=== PATIENT | male | born 1990 | race Hispanic/Latino ===

== ENCOUNTER 2018-08-26 07:59 | Emergency (ER) | payer BC ==
[2018-08-26 08:03] VITALS: RESP 18
[2018-08-26] MEDS ORDERED: Naproxen 500 MG TAB PO STA (08:22)
--- NOTE | 2018-08-26 08:27 | ED PDOC ---
Lower Extremity Pain/Injury Time Seen by Provider: 08/26/18 08:03 Chief Complaint (Nursing): Lower Extremity Problem/Injury Chief Complaint (Provider): right leg bruise History Per: Patient History/Exam Limitations: no limitations Onset/Duration Of Symptoms: Days (x1 week) Current Symptoms Are (Timing): Still Present Additional Complaint(s): Calos Gant is a 28 year old male, with no significant past medical history, who presents to the emergency department complaining of right leg pain and bruise onset x1 week. Patient reports he was at a basketball game x1 week ago after which he noticed a bruise. He iced his leg at the time but states pain has only gotten progressively worst. Patient is not sure how he injured his leg. He denies any weakness, numbness, tingling or other possible injuries. No further medical complaints. PMD: None provided. Past Medical History Reviewed: Historical Data, Nursing Documentation, Vital Signs Vital Signs: Last Vital Signs Temp 97.3 F L 08/26/18 08:01 Pulse 63 08/26/18 08:01 Resp 18 08/26/18 08:01 BP 129/69 08/26/18 08:01 Pulse Ox 99 08/26/18 08:01 - Medical History PMH: No Chronic Diseases Denies: Chronic Kidney Disease - Surgical History Surgical History: No Surg Hx - Family History Family History: States: Unknown Family Hx - Social History Current smoker - smoking cessation education provided: No Alcohol: Social Drugs: Denies - Home Medications Home Medications: Ambulatory Orders Medication Instructions Recorded Naproxen [Naprosyn] 500 mg PO BID PRN #15 tablet 08/26/18 - Allergies Allergies/Adverse Reactions: Allergies Allergy/AdvReac Type Severity Reaction Status Date / Time No Known Allergies Allergy Verified 08/26/18 08:18 Review of Systems ROS Statement: Except As Marked, All Systems Reviewed And Found Negative Musculoskeletal: Positive for: Leg Pain (right bruise) Neurological: Negative for: Weakness, Numbness (tingling) Physical Exam - Reviewed Nursing Documentation Reviewed: Yes Vital Signs Reviewed: Yes - Physical Exam Appears: Positive for: No Acute Distress Head Exam: Positive for: ATRAUMATIC, NORMAL INSPECTION, NORMOCEPHALIC Skin: Positive for: Normal Color, Warm, Dry Eye Exam: Positive for: Normal appearance, EOMI, PERRL Neck: Positive for: Normal, Painless ROM Pulses-Dorsalis Pedis (L): 2+ Extremity: Positive for: Normal ROM (Full ROM of knee and ankle ), Tenderness (Ecchymosis to the anterior medial right lower leg with a 3cm area of edema and tenderness), Swelling, Other (Normal color and not tense. Sensation intact.). Negative for: Deformity Neurologic/Psych: Positive for: Alert, Oriented. Negative for: Motor/Sensory Deficits - ECG O2 Sat by Pulse Oximetry: 99 (RA) Pulse Ox Interpretation: Normal Medical Decision Making Medical Decision Making: Time: 08:03 Initial Impression: Right leg pain Initial Plan: --Naproxen 500 mg PO --Tibia Fibula Rt fall protocol [RAD] --Duplex Lower Extrm Vein Right [US] --Reevaluation 10:18 Lower Extremity US FINDINGS: COMMON FEMORAL VEIN: Unremarkable. SUPERFICIAL FEMORAL VEIN: Unremarkable. POPLITEAL VEIN: Unremarkable. POSTERIOR TIBIAL VEIN: Unremarkable. OTHER FINDINGS: None. IMPRESSION: No sonographic evidence of deep venous thrombosis at the right lower extremity. 10:40 -On reevaluation, leg re-examined and calf remains soft. DP pulses 2+ and sensation intact. 10:45 Tibia/Fibula X-Ray FINDINGS: BONES: Bone alignment and mineralization are normal. There is no acute displaced fracture or bone destruction. JOINT SPACES: Unremarkable. OTHER FINDINGS: None. IMPRESSION: No acute findings. 10:51 Upon provider evaluation patient is medically stable, and requires no further treatment in the ED at this time. Patient will be discharged home. Counseling was provided and all questions were answered regarding diagnosis and need for follow up with ortho. There is agreement to discharge plan. Return if symptoms persist or worsen. Scribe Attestation: Documented by Tc Villagran, acting as a scribe for Kelsey Batista MD Provider Scribe Attestation: All medical record entries made by the Scribe were at my direction and personally dictated by me. I have reviewed the chart and agree that the record accurately reflects my personal performance of the history, physical exam, medical decision making, and the department course for this patient. I have also personally directed, reviewed, and agree with the discharge instructions and disposition. Disposition - Clinical Impression Clinical Impression: Spontaneous ecchymoses - Disposition Referrals: Arthur Rosas MD [Medical Doctor] - [facility] [Outside] Disposition: Routine/Home Disposition Time: 10:51 Condition: STABLE Prescriptions: Naproxen [Naprosyn] 500 mg PO BID PRN #15 tablet PRN Reason: Pain, Moderate (4-7) Instructions: Taking Care of Bruises, Contusion (DC) Forms: [facility] ([facility])
[2018-08-26] MEDS ORDERED: Naproxen 500 MG TAB PO ONE (08:29)
--- NOTE | 2018-08-26 10:22 | US ---
Date of service: 08/26/2018 PROCEDURE: Right lower extremity venous duplex Doppler. HISTORY: LE edema COMPARISON: None available. TECHNIQUE: Common femoral, superficial femoral, popliteal and posterior tibial veins were evaluated. Flow was assessed with color Doppler, compressibility, assessment of phasic flow and augmentation response. FINDINGS: COMMON FEMORAL VEIN: Unremarkable. SUPERFICIAL FEMORAL VEIN: Unremarkable. POPLITEAL VEIN: Unremarkable. POSTERIOR TIBIAL VEIN: Unremarkable. OTHER FINDINGS: None. IMPRESSION: No sonographic evidence of deep venous thrombosis at the right lower extremity.
--- NOTE | 2018-08-26 10:49 | RAD ---
Date of service: 08/26/2018 PROCEDURE: Radiographs of the right tibia and fibula. HISTORY: Mid lower leg pain COMPARISON: None available TECHNIQUE: Frontal and lateral views obtained. FINDINGS: BONES: Bone alignment and mineralization are normal. There is no acute displaced fracture or bone destruction. JOINT SPACES: Unremarkable. OTHER FINDINGS: None. IMPRESSION: No acute findings.
[2018-08-26 11:00] VITALS: BP 125/68; PULSE 60; TEMP 98
[2018-08-26 11:01] VITALS: O2SAT 99
== END 2018-08-26 11:11 | disposition home or self-care (01) ==
LOC: H.ER 07:59
DX: R23.3 Spontaneous ecchymoses (principal)